=== PATIENT | female | born 1995 | race Asian ===

== ENCOUNTER 2018-02-03 13:57 | Emergency (ER) | payer OTHER ==
--- NOTE | 2018-02-03 14:14 | EDPHY ---
H & P Stated Complaint: Fell while skiing;twisted R knee Time Seen by Provider: 02/03/18 14:14 HPI/ROS: HPI: This is a 22-year-old female who presents with Chief Complaint: Fall while skiing, twisted right knee Location: Right medial knee Quality: Injury Duration: Approximately 3 hr prior to arrival Signs and Symptoms: No bleeding, no radiation, no numbness, no weakness, no tingling, no incontinence, + decreased range of motion, + swelling, + pain, no fever Timing: Acute Severity: Moderate Context: Patient reports that she was skiing when she fell down into the snow twisting her right knee. She reports that she felt immediate, constant, nonradiating pain in the medial and anterior portion of her right knee. She reports that pain is increased with flexion and bearing weight. She notes swelling on the anterior aspect of her knee. Denies LOC/head injury/neck pain/ dizziness/nausea/vomiting/amnesia/radiation/weakness. Modifying Factors: She has not taking any [id number] pain medications or applied ice. Comment: ROS: A comprehensive 10 system review of systems is otherwise negative aside from elements mentioned in the history of present illness. MEDICAL/SURGICAL/SOCIAL HISTORY: Medical history: Generally healthy. Does not take any regular medications. LMP 1-2 weeks ago. Surgical history: Denies Social history: Nonsmoker. CONSTITUTIONAL: Polite and cooperative young adult female, awake and alert, no obvious distress HEENT: Atraumatic and normocephalic. NECK: supple, no midline tenderness, flexion 45 degrees, extension 45 degrees, right and left lateral flexion 45 degrees. No meningismus. Cardiovascular: Normal S1/S2, regular rate, regular rhythm, without murmur rub or gallop. PULMONARY/CHEST: Symmetrical and nontender. no crepitus. Clear to auscultation bilaterally. Good air movement. No accessory muscle usage. ABDOMEN: Soft, nondistended, nontender, no ecchymosis. PELVIC: no pain with rocking; bilateral hips flexion 125 degrees, extension 30 degrees, with no pain internal rotation and no pain external rotation. BACK: No midline tenderness, no paraspinous spasm, deep tendon reflexes 2/2, no pain with straight leg raise, No foot drop. Achilles reflexes are equal bilaterally. Able to walk on heels and toes without difficulty. EXTREMITIES: 2/2 pedal pulses, strength 5/5, right KNEE: Mild effusion, no medial and lateral joint line tenderness, full extension to 180, flexion to 120 . No pain with varus exam. Moderate pain with valgus exam. No pain with anterior drawer or posterior drawer test. Extensor mechanism intact. DIP/PIP/ MCP flexion/extension intact with good light touch sensation. no deformities, no clubbing, no cyanosis or edema. NEUROLOGICAL: no focal neuro deficits. GCS 15. Light touch sensation intact. SKIN: Warm and dry, no erythema. no rash. Good capillary refill. Source: Patient Exam Limitations: No limitations - Personal History LMP (Females 10-55): 8-14 Days Ago Current Tetanus Diphtheria and Acellular Pertussis (TDAP): Unsure - Medical/Surgical History Other PMH: healthy - Social History Smoking Status: Never smoked Constitutional: Initial Vital Signs Temperature (C) 36.5 C 02/03/18 13:59 Heart Rate 73 02/03/18 13:59 Respiratory Rate 16 02/03/18 13:59 Blood Pressure 96/63 L 02/03/18 13:59 O2 Sat (%) 98 02/03/18 13:59 O2 Delivery Mode Room Air Allergies/Adverse Reactions: No Known Allergies Allergy (Unverified 02/03/18 14:02) Home Medications: Medication Instructions Recorded NK [No Known Home Meds] 02/03/18 Medical Decision Making - Diagnostics Imaging Results: Imaging Impressions Knee X-Ray 02/03/18 14:07 Impression: Negative right knee radiographs. Procedures: Procedure: Splint placement. A right knee immobilizer was applied. After application of the splint I returned and re-examined the patient. The splint was adequately immobilizing the joint and distal to the splint the patient's circulation and sensation was intact. ED Course/Re-evaluation: Right knee x-ray ordered and my read shows mild effusion no fracture, dislocation. Ice pack applied. Suspect MCL/medial meniscus sprain versus tear. Patient was placed in knee immobilizer and given orthopedic follow-up No signs of neurovascular compromise/tenting of skin/compartment syndrome/ extremities and joints examined above and below area of concern and are neurovascularly intact. This patient was seen under the supervision of my secondary supervising physician. I evaluated care for this patient independently. Discussed this patient with Dr. Dela Cruz who did not see the patient. Differential Diagnosis: Knee injury while [] including but not limited to fracture, ACL injury, contusion, muscular strain, and meniscus injury. Departure - Departure Disposition: Home, Routine, Self-Care Clinical Impression: Sprain of collateral ligament of right knee Qualifiers: Encounter type: initial encounter Qualified Code(s): S83.401A - Sprain of unspecified collateral ligament of right knee, initial encounter Condition: Good Instructions: Knee Sprain (ED), Knee Immobilizer (ED) Additional Instructions: Wear the knee immobilizer while out of bed until pain free or seen by Orthopedics. Take Tylenol 650 mg every 4 hours and/or Ibuprofen 600 mg every 8 hours with food as needed for pain. Apply ice for 30 minutes at a time; 2-3 times per day for the next 1-2 days. Follow up with Orthopedics in 7-10 days if symptoms persist at which time they will evaluate and recommend with you if conservative management versus MRI is indicated. The x-rays obtained in the emergency department today demonstrate no evidence of an obvious fracture. Referrals: Lewis Powers MD [Medical Doctor] - As per Instructions
[2018-02-03 14:58] VITALS: BP 104/86
== END 2018-02-03 14:57 | disposition home or self-care (01) ==
DX: S83.401A Sprain of unspecified collateral ligament of right knee, initial encounter (principal); V00.321A Fall from snow-skis, initial encounter; Y93.23 Activity, snow (alpine) (downhill) skiing, snowboarding, sledding, tobogganing and snow tubing; Y92.828 Other wilderness area as the place of occurrence of the external cause; Y99.8 Other external cause status
CPT/HCPCS: L1830